=== PATIENT | male | born 1980 | race Caucasian/White ===

== ENCOUNTER 2020-09-19 15:42 | Emergency (ER) | payer OTHER ==
[2020-09-19 16:19] LABS: HEMOGLOBIN 16.3 gm/dl (14.0-17.5); RED BLOOD COUNT 5.52 M/UL (4.20-5.50); WHITE BLOOD COUNT 16.9 K/UL (4.5-11.0)
[2020-09-19 16:38] LABS: BUN/CREATININE RATIO 16 (0-10)
[2020-09-19] MEDS ORDERED: PEPCID20 MG PO (19:11)
[2020-09-19] MEDS ORDERED: ZOFRAN ODT 4 MG4 MG PO (19:11)
[2020-09-19] MEDS ORDERED: BENTYL 10MG CAP10 MG PO (19:11)
[2020-09-19] MEDS ORDERED: IBU800 MG PO (19:11)
== END 2020-09-19 19:30 | disposition home or self-care (01) ==
LOC: ER1 15:42
PROVIDERS: Physician Assistant
DX: K80.70 Calculus of gallbladder and bile duct without cholecystitis without obstruction (principal)
CPT/HCPCS: 76705; 80053; 83690; 85025; 96374; 96375; 99284; J2270; J2405; Q9967